=== PATIENT | female | born 1955 | race Caucasian/White ===

== ENCOUNTER 2016-11-22 15:33 | Inpatient (IN) | payer OTHER ==
--- NOTE | 2016-11-22 16:36 | EDPHY ---
H & P Time Seen by Provider: 11/22/16 16:29 HPI/ROS: Chief complaint. Chest pain HPI. 61-year-old female with history dyslipidemia presents to the emergency department after an abnormal stress test today. She has had a cough for 5 days. She went to see her physician about the cough and they found her to have a low heart rate. She was then referred to Cardiology in the stress test today showed apparently complete heart block. Patient has no chest discomfort. No significant shortness of breath. The bronchitis and cough for 4 days. No fever. No unusual leg pain or swelling. No similar symptoms previously ROS Constitutional. no fever/chills, no weakness Eyes. no problems with vision ENT. no sore throat, no nasal drainage Cardiovascular. Slow heart rate Respiratory. Cough Abdominal. no abdominal pain, no nausea/vomiting, no diarrhea . no problems urinating MS. no calf pain/swelling, no neck/back pain, no joint pain Skin. no rash Lymph. no swollen glands Neuro. no headache, no dizziness, no difficulty walking or with speech Past Medical/Surgical History: Dyslipidemia, heart murmur Social History: , nonsmoker, no alcohol Smoking Status: Never smoked Physical Exam: General Appearance: Alert well-developed female mild distress vital signs stable. Initial heart rate 54 Eyes: Pupils equal and round no pallor or injection. ENT, Mouth: Mucous membranes are moist. Respiratory: There are no retractions, lungs are clear to auscultation. Cardiovascular: Regular rate and rhythm. Bradycardia Gastrointestinal: Abdomen is soft and nontender, no masses, bowel sounds normal. Neurological: Awake and alert, sensory and motor exams grossly normal. Skin: Warm and dry, no rashes. Musculoskeletal: Neck is supple nontender. Extremities symmetrical, full range of motion. Psychiatric: Patient is oriented X 3, there is no agitation. Constitutional: Initial Vital Signs Temperature (C) 36.8 C 11/22/16 15:38 Heart Rate 54 L 11/22/16 15:38 Respiratory Rate 16 11/22/16 15:38 Blood Pressure 144/83 H 11/22/16 15:38 O2 Sat (%) 92 11/22/16 15:38 O2 Delivery Mode Room Air Allergies/Adverse Reactions: adhesive Allergy (Verified 05/03/15 15:58) chlorhexidine Allergy (Verified 06/08/15 16:23) Rash latex Allergy (Verified 05/03/15 15:58) nickel Allergy (Verified 06/08/15 16:23) Rash pineapple Allergy (Verified 05/03/15 15:58) tuberculin, purified protein deriva [tuberculin,purif.prot.deriv.] Allergy ( Verified 05/03/15 15:58) steri strips Allergy (Uncoded 11/07/14 11:42) Home Medications: Medication Instructions Recorded Albuterol [Proventil Inhaler HFA 1 - 2 puffs IH DAILY PRN 11/22/16 (*)] Ezetimibe [Zetia 10 MG (*)] 10 mg PO HS 11/22/16 Guaifenesin/Codeine Phosphate 5 - 10 ml PO Q4H PRN 11/22/16 [Guaifenesin-Codeine Liquid] Herbals/Supplements -Info Only 1 ea PO DAILY 11/22/16 Multivitamins [Multivitamin (*)] 1 each PO DAILY 11/22/16 Medical Decision Making - Diagnostics EKG Interpretation: EKG interpreted by me appears to show a 2nd degree AV block. She has P-waves before each QRS complex but then a fixed P wave following the T-wave. No significant ST elevation or depression. No arrhythmia. The heart rate is 42 Imaging Results: Chest x-ray interpreted by me shows possible pneumonia left lung base Procedures: IV normal saline, monitor ED Course/Re-evaluation: Zithromax in the emergency department Patient remained stable on serial evaluations with heart rate in the upper 40s. Patient is not dizzy and does not have chest discomfort. She does continue to have significant deep coughing. No shortness of breath however. I consulted and discussed the case with 2 cardiologists, Dr. Roy and Izabela, Dr. Sarah knows about this patient from the office and tells me that the patient was not in complete heart block but appeared to be in second-degree heart block. He will consult on the patient and discuss further management with hospitalist. I consulted and discussed the case with Dr. Blum, hospitalist, who agrees to the admission The patient, her , and I discussed imaging study showing possible left lower lobe pneumonia. We discussed EKG findings showing abnormal conduction and need for admission. I recommended admission and they are in agreement Differential Diagnosis: The patient has had several days of a deep cough. She saw her physician today for concern for her cough and possible bronchitis or pneumonia. She was found to have a low heart rate and stress test revealed second-degree AV block. It is possible that the second-degree AV block is secondary to the illness or the patient may have primary cardiac cause. No evidence for acute TX. It does appear on chest x-ray to be suspicious for left lower lobe pneumonia. Patient does not appear to be toxic or significantly ill and will be treated with Zithromax - Data Points Laboratory Results: Laboratory Results 11/22/16 16:52 11/22/16 16:52 Medications Given: Discontinued Medications Azithromycin (Zithromax) 500 mg PO DAILY TONE PRN Reason: Protocol Stop: 12/22/16 17:44 Last Admin: 11/23/16 09:33 Dose: Not Given Azithromycin (Zithromax) 500 mg PO EDNOW ONE PRN Reason: Protocol Stop: 11/22/16 19:02 Last Admin: 11/22/16 19:08 Dose: 500 mg Ibuprofen (Motrin) 200 mg PO ONCE ONE Stop: 11/23/16 03:10 Last Admin: 11/23/16 03:05 Dose: 200 mg Departure - Departure Disposition: [facility] Inpatient Acute Clinical Impression: Second degree heart block Pneumonia Qualifiers: Pneumonia type: due to unspecified organism Laterality: left Lung location: lower lobe of lung Qualified Code(s): J18.1 - Lobar pneumonia, unspecified organism Condition: Good
--- NOTE | 2016-11-22 16:37 | CPEKG ---
Heart Rate: 42 RR Interval: 1429 P-R Interval: 216 QRSD Interval: 90 QT Interval: 608 QTC Interval: 509 P [place]: 17 QRS [place]: 18 T Wave [place]: 35 EKG Severity - BORDERLINE ECG - EKG Impression: SINUS BRADYCARDIA EKG Impression: BORDERLINE PROLONGED QT INTERVAL Electronically Signed By: Willis Ricardo 22-Nov-2016 17:41:38
[2016-11-22 17:00] LABS: % IMMATURE GRANULYOCYTES 0.2 % (0.0-1.1); ABSOLUTE IMMATURE GRANULOCYTES 0.02 10^3/uL (0.00-0.10); ADD DIFF? NO; ADD MORPH? NO; ADD SCAN? NO; ATYPICAL LYMPHOCYTE FLAG 10 (0-99); FRAGMENT RBC FLAG 0 (0-99); HEMATOCRIT 43.8 % (38.0-47.0); HEMOGLOBIN 14.6 g/dL (12.6-16.3); LEFT SHIFT FLG 0 (0-99); LIPEMIA HEMOLYSIS FLAG 80 (0-99); MEAN CELL HEMOGLOBIN 28.9 pg (27.9-34.1); MEAN CELL HEMOGLOBIN CONCENTR. 33.3 g/dL (32.4-36.7); MEAN CELL VOLUME 86.7 fL (81.5-99.8); MEAN PLATELET VOLUME 11.4 fL (8.7-11.7); PLATELET CLUMPS FLAG 10 (0-99); PLATELET COUNT 166 10^3/uL (150-400); RED BLOOD CELL COUNT 5.05 10^6/uL (4.18-5.33)
[2016-11-22 17:18] LABS: ANION GAP 11 mEq/L (8-16); CALCIUM 9.7 mg/dL (8.5-10.4); CARBON DIOXIDE 21 mEq/l (22-31); CHLORIDE 105 mEq/L (97-110); CREATININE 0.8 mg/dL (0.6-1.0); GLOMERULAR FILTRATION RATE > 60; GLUCOSE 104 mg/dL (70-100); POTASSIUM 4.3 mEq/L (3.5-5.2); SODIUM 137 mEq/L (134-144)
[2016-11-22 17:31] LABS: TROPONIN I < 0.012 ng/mL (0-0.034)
[2016-11-22] MEDS ORDERED: AZITHROMYCIN 250 MG TAB PO SCH (17:45)
[2016-11-22] MEDS ORDERED: ACETAMINOPHEN 325 MG TAB PO PRN (17:57)
[2016-11-22] MEDS ORDERED: ONDANSETRON DISINTEGRATING 4 MG TAB PO PRN (17:57)
[2016-11-22] MEDS ORDERED: ONDANSETRON 4 MG/2 ML VIAL IVP PRN (17:57)
[2016-11-22] MEDS ORDERED: BENZONATATE 100 MG CAP PO PRN (18:03)
[2016-11-22] MEDS ORDERED: ALBUTEROL 3 ML DEYVIAL IH PRN (18:04)
[2016-11-22] MEDS ORDERED: guaiFENesin/CODEINE PHOS 10 ML UDCUP PO PRN (18:06)
[2016-11-22] MEDS ORDERED: AZITHROMYCIN 250 MG TAB PO ONE (19:01)
[2016-11-22] MEDS ORDERED: ALBUTEROL 3 ML DEYVIAL ONE (19:04)
--- NOTE | 2016-11-22 20:57 | GHP ---
[f rep st] HISTORY AND PHYSICAL DATE OF ADMISSION: 11/22/2016 CHIEF COMPLAINT: Cough and bradycardia. 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 The cough lasted th roughout the week remaining very intense, nonproductive, with some associated shortness of breath. Therefore, she presented to an outpatient clinic for evaluation. When she was being examined by the physician, was noted to have bradycardia and was referred to [facility] for evaluation. The pat james was found to be in second-degree heart block on transfer to the emergency department for evalua tion. In the ED, the patient is endorsing this cough which has been persistent and quite intense ov er the course of the last 5 days, nonproductive per her report even with taking Mucinex at home. Th e patient denies any subjective fevers or chills. Reports some shortness of breath with the cough, but denies any nausea and vomiting. Reports some abdominal discomfort from the cough. Denies chest pain. Denies any diarrhea, any dysuria, hematuria, lower extremity edema, or rashes. PAST MEDICAL HISTORY: Hyperlipidemia, and history of a heart murmur that has simply been followed. SOCIAL HISTORY: Patient does not smoke. Drinks very occasional alcohol. No illicit drugs or marij uana. FAMILY HISTORY: Positive for heart disease in her father. ADVANCED DIRECTIVES: Patient is full cor, full tube. Her would be her medical decision lana er. REVIEW OF SYSTEMS: A 10-point review of systems is negative with the exception of that reported in the HPI. PHYSICAL EXAMINATION: VITAL SIGNS: Blood pressure 144/83, heart rate 54, respiratory rate 16, 92% on room air, 36.8. GENERAL: This is a pleasant appearing middle-aged female, coughing during my ex am but in no distress. HEENT: Notable for moist mucous membranes. Eye exam is negative for any ic terus. CARDIAC: Patient is bradycardic, but regular. PULMONARY: Patient has wheezing on posterio r auscultation, otherwise clear to auscultation. GASTROINTESTINAL: Positive bowel sounds. ABDOMEN : Soft and nontender. MUSCULOSKELETAL: Negative for any lower extremity edema. SKIN: Negative f or any rashes. NEUROLOGIC: Patient is alert and oriented x3. PSYCHIATRIC: She is pleasant and co operative on interview and examination. DATA: White count 8.3. Troponin less than 0.012. Chest x-ray, which I personally reviewed and int erpreted, shows no acute infiltrates or edema. Poor inspiration is commented on by Radiology. EKG, which I personally reviewed and interpreted, shows sinus rhythm with a normal axis. ND interval sli ghtly prolonged. The patient has dropped beats after her T-wave consistent with heart block. ASSESSMENT AND PLAN: This is a -wurb-jhq female with limited history presenting with coug h and bradycardia. 1. Acute heart block. I discussed the case with Dr. Gurrola from Cardiology, who feels that potential ly the patient's cause is related to her acute bronchitis and coughing. She was placed on a stress test today and was noted to have some PVCs which prompted Cardiology's desire to admit her overnight for monitoring. We will bring her in, place her on telemetry. I have ordered a transthoracic echo cardiogram. We will aggressively treat her cough and bronchitis with antibiotics to be outlined bel ow and monitor her heart rhythm on this treatment. The patient is currently asymptomatic and tolera ting normal p.o. We will not initiate any new medications for heart block at this time. 2. Acute bronchitis, suspect likely viral, however, has been prolonged. Will treat for atypical ba cterial pathogens with oral azithromycin. Additionally written the patient for Tessalon Perles, gua ifenesin with codeine, and inhaled albuterol in hopes to find some cessation and comfort for her ove rnight. She can complete an oral course of azithromycin after disposition. We can see overnight wh at gives her the best symptom relief with her cough. 3. Hyperlipidemia. Will continue her home medication without change. 4. Prophylaxis with Lovenox. DIET: Cardiac. DISPOSITION: I expect greater than 2 midnights as the patient is presenting with heart block, which may require intervention. We will monitor overnight and prepare for cardiology evaluation in the [facility]. I have discussed the case with Dr. Gurrola. Patient will be triaged to the PCU for care. /[id number]/MODL
[2016-11-22] MEDS: EZETIMIBE 10 MG TAB PO SCH (21:17)
--- NOTE | 2016-11-23 00:18 | GCON ---
[f rep st] CONSULTATION HISTORY OF PRESENT ILLNESS: This is a 61-year-old female with past medical history of dyslipidemia, who has been working with kindergarten students. She has been performing significant physical activities and felt that she was pushing against a wall for the past couple of days. She was having significant amount of cough with productive sputum. Hence, decided to go to the PCP. While she was there, she was noted to have decreased heart rate. Hence, EKG was performed. The patient was noted to be in 2:1 heart block. She was sent to us for evaluation. On questioning the patient, she denies any light headedness, dizziness, presyncope or syncope. No chest pain or pressure. She was brought to our clinic and evaluated. She underwent a stress test to look for chronotropic incompetence. She was noted to have 2:1 heart block. No acute chest pain at rest. During exercise, she had continued 2:1 block and PVCs. She was not able to exercise much and had to stop due to cough and shortness of breath. PAST MEDICAL HISTORY: Dermatitis, elevated liver enzymes, essential tremor, hyperglycemia, hyperlipidemia, migraine, ovarian cyst complex. PAST SURGICAL HISTORY: Appendectomy, hysterectomy. MEDICATIONS: Advil 200 once a day, glucosamine, guaifenesin, magnesium, Mucinex , multivitamin, ProAir HFA, vitamin D, Zetia. ALLERGIES: Chlorhexidine, tuberculin. FAMILY HISTORY: Coronary artery disease, CVA. SOCIAL HISTORY: 3 children. . technical administrative assistant. Lives with . REVIEW OF SYSTEMS: Other than the above, 10-point review of system is positive for headaches, nasal discharge, fatigue, malaise, body ache, loss of appetite, shortness of breath with wheezing, abnormal sputum production. Otherwise, 10- point review of systems are negative. PHYSICAL EXAMINATION: VITAL SIGNS: Blood pressure 130/80, pulse Temp 36.5, respiratory rate 16. GENERAL: Well-appearing, well-developed, alert female who coughs occasionally. HEENT: No facial lesions or swelling. No sinus tenderness. Conjunctivae normal. Sclerae white bilaterally. Eyelids appear normal. No exudates noted. No inflammation of the oropharynx. Voice is normal. External nose appears normal. Oral mucosa normal without pallor or cyanosis. NECK: Inspection normal. CHEST: Breathing labored. No accessary muscle use. Wheezing present. Expiratory rales throughout. Some clearing with cough. CARDIAC: S1, S2 regular. Bradycardia noted. ABDOMEN: Soft, nontender. No guarding or rigidity. Bowel sounds present. LYMPHATIC: No lymphadenopathy, cervical lymphadenopathy noted. NEURO: Mental status grossly normal. Insight normal. Mood normal. IMPRESSION PLAN: This is a 61-year-old female with acute bronchitis and second -degree atrioventricular block. It is unclear as to the etiology of atrioventricular block. In a 61-year-old female without risk factors likely that this may be related to bronchitis. Considering that she is having PVCs when she is exercising, this could be concerning. Hence, observation in the hospital on tele monitor for 24 hours will be needed. If there is worsening of the heart block, consider implanting a pacemaker. However, it is possible that her heart block will improve with treatment of bronchitis and we can avoid pacemaker implant in this young patient. If she does well in the next 24 hours, we can discharge her to home and see her in the clinic within a week. I have explained this to the patient and the family. They are agreeable to it. We will recommend echocardiogram to evaluate for evidence of myocarditis. PVCs: We will assess for PVCs on tele monitor while she is admitted to the hospital. Thank you for letting us participate in the patient's care. Feel free to call us for questions. /[id number]/MODL MTDD
[2016-11-23] MEDS ORDERED: IBUPROFEN 200 MG TAB PO ONE ×2 (02:49→03:09)
[2016-11-23 05:47] LABS: ANION GAP 9 mEq/L (8-16); CALCIUM 9.1 mg/dL (8.5-10.4); CARBON DIOXIDE 22 mEq/l (22-31); CHLORIDE 108 mEq/L (97-110); CREATININE 0.7 mg/dL (0.6-1.0); GLOMERULAR FILTRATION RATE > 60; GLUCOSE 97 mg/dL (70-100); POTASSIUM 4.4 mEq/L (3.5-5.2); SODIUM 139 mEq/L (134-144)
[2016-11-23] MEDS ORDERED: Herbals/Supplements -Info Only PO SCH (09:00)
[2016-11-23] MEDS ORDERED: AZITHROMYCIN 250 MG TAB PO SCH (09:00)
--- NOTE | 2016-11-23 09:30 | SOAPPROG ---
SOAP Progress Note Assessment/Plan: Assessment: 1. Upper respiratory infection. Common cold versus bronchitis versus possible small pneumonia. Plans are for treatment with antibiotics. 2. Two-to-one AV block. Narrow complex escape indicates that the block is at the level of the AV node. This is asymptomatic. She did undergo a stress test yesterday and did not develop higher degree AV block although was unable to augment her heart rate. She is hemodynamically stable. Plan: 1. Obviously, avoidance of AV roman agents is indicated. 2. Check TSH and magnesium levels. 3. An echocardiogram has been ordered for today. 4. Will plan to monitor her on telemetry throughout today and overnight. As long as she remains hemodynamically stable and does not developed a higher degree of AV block I think that she can be discharged home with close clinical follow-up in the outpatient setting. 5. I do, however, believe that at some point here in the near future she will require placement of a permanent pacemaker. I also wonder if, at some point here in the near future, we should consider further workup for possible sarcoidosis. Subjective: The patient was seen and examined. Her chart was reviewed. She was seen in consultation by Dr. Trevon Gurrola yesterday. She has been monitored overnight. She remains in 2-1 heart block however, is asymptomatic at the present time. Specifically, she has not manifested any symptoms of dizziness, lightheadedness , presyncope or syncope. She is currently being treated for an upper respiratory infection possibly bronchitis. There is also consideration of a possible small pneumonia. She had a stress test done yesterday. She was unable to augment her heart rate with physical activity however she did not develop I higher degree of AV block with physical activities. Objective: Vital Signs Temp Pulse Resp BP Pulse Ox 36.4 C 44 L 14 146/53 H 96 11/23/16 07:56 11/23/16 07:56 11/23/16 07:56 11/23/16 07:56 11/23/16 07:56 Laboratory Results 11/23/16 04:20 11/22/16 11/23/16 11/24/16 05:59 05:59 05:59 Intake Total 300 Balance 300 - Pending Discharge Pending Discharge Within 24 Hours: No Pending Discharge Within 48 Hours: Yes Pending Discharge Date: 11/26/16 Pending Discharge Time: 11:00 Physical Exam - Physical Exam General Appearance: WD/WN, no apparent distress, other (She coughs frequently during the exam) Neck: non-tender, full range of motion Respiratory: lungs clear, No crackles, No rales, No rhonchi Cardiac/Chest: bradycardia, No edema, No gallop, No JVD Peripheral Pulses: 2+: carotid (R), carotid (L) Abdomen: non-tender Pelvic Exam: deferred Rectal: deferred Extremities: No pedal edema Neuro/Psych: alert, normal mood/affect, oriented x 3 ICD10 Worksheet Patient Problems: Problems Problem Status Onset Cough Acute Pneumonia Acute Second degree heart block Acute
[2016-11-23] MEDS: MULTIVITAMINS 1 EACH TAB PO SCH (09:42)
[2016-11-23] MEDS: ENOXAPARIN 40 MG/0.4 ML SYR SC SCH (09:44)
--- NOTE | 2016-11-23 10:03 | ECHO ---
[id number] + + [id number] : : [place] [address] : : [phone] + + Adult Echocardiographic Report + ------+ :Name: PARAG CEDILLO LStudy Date: 11/23/2016 09:15 AM BP: 146/53 mmHg : : Hospital Admission Number: [id number] Locatio n: 223: :: 1955 Gender: Female Height: 65 in : :Age: 61 yrs Race: WH Weight: 168 lb : :Reason For Study: heart block : : BSA: 1.8 meters 2 : :History: heart block : + ------+ MMode/2D Measurements \T\ Calculations IVSd: 0.82 cm RVDd: 4.0 cm FS: 29.1 % Ao root diam: LVPWd: 0.95 cm LVIDd: 4.9 cm EDV(Teich): 2.2 cm LVIDs: 3.5 cm 112.6 ml LA dimension: ESV(Teich): 3.9 cm 49.9 ml EF(Teich): 55.7 % LVLd ap4: 8.9 cm SV(MOD-sp4): EDV(MOD-sp4): 85.0 ml 124.0 ml LVLs ap4: 7.5 cm ESV(MOD-sp4): 39.0 ml EF(MOD-sp4): 68.5 % Normal Measurement Values: + + :LVIDd (3.5-5.7cm) IVSd (0.6-1.1cm) LVPWd (0.6-1.1cm) Aortic Root (2.0-3.7cm)Left Atrium (1.5-4.0cm): :LV Vol(d) (76-115ml) LV Vol(s) (29-48ml) Ejec Fraction (50-65%)PV Ciro (0.6- 1.2m/s) TV Ciro (0.4-1.0m/s) : :MV E Ciro (0.8-1.0m/s)MV A Ciro (0.3-1.0m/s)LVOT Ciro (0.7-1.2m/s) Asc Ao Ciro ( 0.9-1.8m/s) : + + Doppler Measurements \T\ Calculations MV E max ciro: Ao V2 max: LV V1 max: PA V2 max: 65.2 cm/sec 192.9 cm/sec 146.2 cm/sec 107.6 cm/sec MV A max ciro: Ao max PG: LV V1 max PG: PA max P.4 cm/sec 14.9 mmHg 8.6 mmHg 4.6 mmHg MV E/A: 0.79 MV dec time: 0.23 sec Left Ventricle The left ventricle is normal in size and function. There is normal left ventricular wall thickness. Ejection Fraction = 55-60%. There is Doppler evidence for diastolic dysfunction. No regional wall motion abnormalities noted. Right Ventricle The right ventricle is normal in size and function. Atria The Left Atrial Volume is 34 ml/m2. The left atrium is mildly dilated. Mitral Valve The mitral valve is normal in structure and function. There is no mitral valve stenosis. There is mild mitral regurgitation. Tricuspid Valve The tricuspid valve is normal in structure and function. There is no tricuspid stenosis. There is trace tricuspid regurgitation. Aortic Valve The aortic valve is normal in structure and function. There is no aortic stenosis. Trace aortic regurgitation. Pulmonic Valve The pulmonic valve is not well visualized. Great Vessels The aortic root is normal size. Pericardium/Pleural There is no pericardial effusion. Pleural effusion noted. Conclusion A two-dimensional transthoracic echocardiogram with M-mode and Doppler was performed. The rhythm is NSR with 2:1 AV block. The left ventricle is normal in size and function. Ejection Fraction = 55-60%. There is Doppler evidence for diastolic dysfunction. Normal wall motion. The Left Atrial Volume is 34 ml/m2. The left atrium is mildly dilated. Valvular appearance is normal. There is mild mitral regurgitation. This occurs predominantly in diastole during blcked beats. There is trace tricuspid regurgitation. Trace aortic regurgitation. Final Reading Physician: Ade Hurtado signed on 11/23/2016 10:02 AM Ordering Physician: Kyra Blum Performed By: Brenda Henley
--- NOTE | 2016-11-23 10:21 | HOSPPROG ---
Hospitalist Progress Note Assessment/Plan: DIAGNOSES: # persistent cough and dyspnea without fever and with the centrally normal chest x-ray -this is the 3rd episode of this similar illness for her in the past couple months or so. She does have history of allergic rhinitis. She is responding nicely at this time as well at home previously to bronchodilators for this. The differential diagnosis for this includes asthma, viral respiratory infection, as well as other noninfectious inflammatory illnesses. I reviewed this With the patient has been. At this point a viral respiratory panel will be useful to see if we can identify respiratory illness. I will get PFTs to look for any sign of asthma. -will continue bronchodilators as she has responded to this and consider possibly some inhaled steroids as well. # bradycardia with second-degree AV blockade. -we do need to check thyroid as well as Magnesium for her -echo is also pending to look for structural heart disease -she is tolerating this bradycardia and heart block well, so at this point we have the luxury of time to watch how long this goes on or whether she develops any higher degree blockade. PLANS: -no current plans to place pacemaker but she may eventually need that in the near or long distant future -PFTs -viral respiratory panel -continue bronchodilators -consider inhaled steroid -will hold off on antibiotics for the moment as I do not see a clear indication for antibiotic at this time SUBJECTIVE: Continues to have ongoing significant cough and shortness of breath with exertion No chest pain Not particularly lightheaded OBJECTIVE Vitals reviewed: Bradycardia but good blood pressures, Line Lead, my review: Continues on with continuous second-degree heart block with pulse of 40 Exam: alert oriented skin warm dry color ok resps not labored lungs clear BSs with no wheeze rales or rhonchi (it is at least 8 hours since her last bronchodilator) heart regular abd soft nondistended nontender, bowel sounds present limbs warm, no edema iv site ok I have personally reviewed her chest x-ray images which show on my interpretation a normal chest x-ray with probably some minimal atelectasis at the left lower lobe Objective: Vital Signs Temp Pulse Resp BP Pulse Ox 36.4 C 44 L 14 146/53 H 96 11/23/16 07:56 11/23/16 07:56 11/23/16 07:56 11/23/16 07:56 11/23/16 07:56 Laboratory Results 11/23/16 04:20 11/22/16 11/23/16 11/24/16 06:59 06:59 06:59 Intake Total 300 Balance 300 ICD10 Worksheet Patient Problems: Problems Problem Status Onset Cough Acute - ICD10 Problem Qualifiers (1) Cough
[2016-11-23] MEDS: IBUPROFEN 200 MG TAB PO PRN ×2 (12:39→19:11)
[2016-11-23] MEDS: EZETIMIBE 10 MG TAB PO SCH (20:07)
[2016-11-24 07:33] VITALS: BP 140/60; PULSE 40; RESP 13; TEMP 97.6
--- NOTE | 2016-11-24 09:33 | SOAPPROG ---
SOAP Progress Note Assessment/Plan: Assessment: 1. Upper respiratory infection. Common cold versus bronchitis versus possible small pneumonia. Plans are for treatment with antibiotics. 2. Two-to-one AV block. Narrow complex escape indicates that the block is at the level of the AV node. This is asymptomatic. She did undergo a stress test yesterday and did not develop higher degree AV block although was unable to augment her heart rate. She is hemodynamically stable. Plan: At this point, I think that she is stable for discharge. I would like her to follow up with Dr. Trevon Gurrola next Friday For reassessment of her AV block. 11/24/16 09:33 Subjective: She has remained hemodynamically stable overnight. Apparently, her nasal swab returned with evidence of run a virus and enterovirus. She continues to have a cough. On telemetry she has not had any higher degrees of AV block other than her baseline two-to-one AV block. Objective: Vital Signs Temp Pulse Resp BP Pulse Ox 36.4 C 40 L 13 140/60 H 96 11/24/16 07:31 11/24/16 07:31 11/24/16 07:31 11/24/16 07:31 11/24/16 07:31 Microbiology 11/23/16 09:45 Respiratory Panel (PCR) - Final Nasal, Sinus - [place] Viral Transport Human Rhinovirus/Enterovirus Laboratory Results 11/23/16 04:20 11/23/16 11/24/16 11/25/16 05:59 05:59 05:59 Intake Total 300 880 425 Balance 300 880 425 Laboratory Tests 11/22/16 11/23/16 16:52 04:20 Troponin I < 0.012 NT-Pro-B Natriuret Pep 65 TSH 2.080 Physical Exam - Physical Exam General Appearance: WD/WN, no apparent distress Neck: non-tender Respiratory: lungs clear Cardiac/Chest: regular rate, rhythm Peripheral Pulses: 2+: carotid (R), carotid (L) ICD10 Worksheet Patient Problems: Problems Problem Status Onset Cough Acute Pneumonia Acute Second degree heart block Acute
[2016-11-24 09:37] VITALS: O2SAT 86
[2016-11-24] MEDS: ENOXAPARIN 40 MG/0.4 ML SYR SC SCH (09:47)
[2016-11-24] MEDS: MULTIVITAMINS 1 EACH TAB PO SCH (09:47)
--- NOTE | 2016-11-24 10:17 | PDDCSUM ---
Discharge Summary Discharge Summary: DISCHARGE DIAGNOSES: -second-degree AV block with bradycardia -Viral respiratory illness with rhino virus confirmed -Bronchitis versus possible asthma CONSULTANTS: Dr. Brien Fay And Dr. Trevon Gurrola PROCEDURES: Echocardiogram HOSPITAL COURSE SUMMARY: This patient came into the hospital complaining of cough and shortness breath. 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 She was diagnosed in the outpatient setting with bronchitis and has been previously diagnosed with bronchitis doing the other episodes. She has been using inhaled albuterol which is helping her dyspnea and her cough. She denies any history of asthma but does give a history of allergic rhinitis seasonally. On arrival here she is found to be in second-degree AV block with ongoing heart rate of 40 to 45. other than the above symptoms she is tolerating the slow heart rate well and has good blood pressures. No signs of heart failure. She has an echocardiogram that shows some diastolic dysfunction but fairly unremarkable otherwise. She has rule out for myocardial infarction. She is not taking any heart rate slowing medications. Her thyroid function is normal and electrolytes are good. It was felt that she might possibly need pacemaker placement although it was felt also possible that her bradycardia could be caused by her acute respiratory illness. It is elected to have the patient follow up with Dr. Gurrola in the clinic with 1 week to see how her pulse and electrical activity or behaving, and consider possibly doing pacemaker placement at that time she still having difficulty. In terms of her respiratory symptoms she did not have wheezing here. She was coughing up small amounts of non purulent appearing phlegm. There is no fever. Chest x-ray showed no definite infiltrate on my review of the images. A consider the possibility of asthma. Pulmonary function testing was done with bedside spirometry. This is probably compromised by her severe cough. Notably it shows a significant decrease in expected FEV1 however the FVC was also decreased in the FEV to FVC ratio was in the normal range for her. Additionally she did not have hyperexpanded appearing lungs on her chest x-ray. However she has been having good response to her dyspnea and cough at home with inhaled albuterol and continues to have that same response here in the hospital. It is recommended that at this time she continued to use inhaled albuterol and seek referral to an chief crna a electronics test engineer to consider testing for asthma in the outpatient setting. PENDING TEST RESULTS: None MEDICATION CHANGES: none FOLLOW-UP PLAN: -follow-up with Dr. Sarah in Cardiology Clinic in 1 week to consider possible need for pacemaker placement -Follow up with primary care Yumiko Mohr physician speech pathologist assistant for assessment of respiratory symptoms and referral to allergy or pulmonology to test for asthma Greater than 35 minutes bedside and care coordination time today
== END 2016-11-24 11:17 | disposition home or self-care (01) | DRG 310 ==
LOC: F2W 20:43
PROVIDERS: ADMIT Hospitalist; ATTEND Hospitalist
DX: I44.1 Atrioventricular block, second degree (principal); J20.6 Acute bronchitis due to rhinovirus; E78.5 Hyperlipidemia, unspecified
CPT/HCPCS: J1650

== ENCOUNTER 2016-12-09 11:31 | Observation (INO) | payer OTHER ==
[2016-12-09] MEDS ORDERED: diphenhydrAMINE 25 MG CAP PO ONE (11:32)
[2016-12-09] MEDS ORDERED: ceFAZolin 2 GM/DEXTROSE 100 ML IV ONE (11:32)
[2016-12-09] MEDS ORDERED: BACITRACIN IRRIGATION/NS 50,000 UNITS/1,000 ML BTL IRR ONE (11:32)
[2016-12-09] MEDS ORDERED: NS 1,000 ML IV ONE (11:32)
[2016-12-09] MEDS ORDERED: DIAZEPAM 5 MG TAB PO ONE (11:32)
--- NOTE | 2016-12-09 11:57 | CPEKG ---
Heart Rate: 34 RR Interval: 1765 QRSD Interval: 86 QT Interval: 528 QTC Interval: 397 QRS [place]: 6 T Wave [place]: 6 EKG Severity - ABNORMAL ECG - EKG Impression: SINUS BRADYCARDIA WITH SECOND DEGREE (TYPE I) AVB EKG Impression: BORDERLINE T ABNORMALITIES, DIFFUSE LEADS EKG Impression: "P" WAVE AMPLITUDE IS SMALL EKG Impression: PRIOR ECG WITH SINUS RHYTHM AND 2:1 BLOCK Electronically Signed By: Gilles Reilly 10-Dec-2016 12:29:21
[2016-12-09 12:18] LABS: % IMMATURE GRANULYOCYTES 0.3 % (0.0-1.1); ABSOLUTE IMMATURE GRANULOCYTES 0.02 10^3/uL (0.00-0.10); ADD DIFF? NO; ADD MORPH? NO; ADD SCAN? NO; ATYPICAL LYMPHOCYTE FLAG 0 (0-99); FRAGMENT RBC FLAG 0 (0-99); HEMATOCRIT 45.3 % (38.0-47.0); LEFT SHIFT FLG 0 (0-99); LIPEMIA HEMOLYSIS FLAG 80 (0-99); MEAN CELL HEMOGLOBIN 28.8 pg (27.9-34.1); MEAN CELL HEMOGLOBIN CONCENTR. 33.1 g/dL (32.4-36.7); MEAN CELL VOLUME 86.9 fL (81.5-99.8); MEAN PLATELET VOLUME 11.6 fL (8.7-11.7); PLATELET CLUMPS FLAG 0 (0-99); PLATELET COUNT 185 10^3/uL (150-400); RED BLOOD CELL COUNT 5.21 10^6/uL (4.18-5.33); RED CELL DISTRIBUTION WIDTH 13.9 % (11.5-15.2)
[2016-12-09] MEDS ORDERED: LIDOCAINE 1% 300 MG/30 ML SDV ONE (12:37)
[2016-12-09] MEDS ORDERED: MIDAZOLAM 2 MG/2 ML VIAL ONE ×2 (12:37→13:49)
[2016-12-09] MEDS ORDERED: fentaNYL 100 MCG/2 ML INJ ONE ×2 (12:37→13:49)
[2016-12-09] MEDS ORDERED: BUPIVACAINE 0.5% 30 ML SDV ONE (12:38)
[2016-12-09] MEDS ORDERED: LIDO/EPI 1% **for epidural** 30 ML SDV ONE (12:38)
[2016-12-09] MEDS ORDERED: IOPAMIDOL (ISOVUE-300) 150 ML BTL ONE (12:40)
[2016-12-09 12:42] LABS: INR 1.04 (0.83-1.16); PROTIME(PATIENT) 13.5 SEC (12.0-15.0)
[2016-12-09 12:45] LABS: ANION GAP 11 mEq/L (8-16); CALCIUM 10.1 mg/dL (8.5-10.4); CARBON DIOXIDE 21 mEq/l (22-31); CHLORIDE 108 mEq/L (97-110); CREATININE 0.8 mg/dL (0.6-1.0); GLOMERULAR FILTRATION RATE > 60; GLUCOSE 89 mg/dL (70-100); POTASSIUM 4.3 mEq/L (3.5-5.2); SODIUM 140 mEq/L (134-144)
[2016-12-09] MEDS: IBUPROFEN 200 MG TAB PO PRN (19:34)
[2016-12-09] MEDS ORDERED: EZETIMIBE 10 MG TAB PO SCH (21:00)
[2016-12-10] MEDS: IBUPROFEN 200 MG TAB PO PRN ×2 (02:27→08:47)
[2016-12-10 04:37] LABS: % IMMATURE GRANULYOCYTES 0.3 % (0.0-1.1); ABSOLUTE IMMATURE GRANULOCYTES 0.02 10^3/uL (0.00-0.10); ADD DIFF? NO; ADD MORPH? NO; ADD SCAN? NO; ATYPICAL LYMPHOCYTE FLAG 0 (0-99); FRAGMENT RBC FLAG 0 (0-99); HEMATOCRIT 41.8 % (38.0-47.0); HEMOGLOBIN 13.8 g/dL (12.6-16.3); LEFT SHIFT FLG 0 (0-99); LIPEMIA HEMOLYSIS FLAG 80 (0-99); MEAN CELL HEMOGLOBIN 28.7 pg (27.9-34.1); MEAN CELL VOLUME 86.9 fL (81.5-99.8); MEAN PLATELET VOLUME 11.6 fL (8.7-11.7); PLATELET CLUMPS FLAG 0 (0-99); PLATELET COUNT 150 10^3/uL (150-400); RED BLOOD CELL COUNT 4.81 10^6/uL (4.18-5.33); RED CELL DISTRIBUTION WIDTH 13.8 % (11.5-15.2)
[2016-12-10 05:02] LABS: ANION GAP 10 mEq/L (8-16); CALCIUM 9.6 mg/dL (8.5-10.4); CARBON DIOXIDE 21 mEq/l (22-31); CHLORIDE 106 mEq/L (97-110); CREATININE 0.8 mg/dL (0.6-1.0); GLOMERULAR FILTRATION RATE > 60; GLUCOSE 96 mg/dL (70-100); POTASSIUM 4.2 mEq/L (3.5-5.2); SODIUM 137 mEq/L (134-144)
[2016-12-10 07:31] VITALS: BP 146/91; PULSE 75; RESP 20; TEMP 98.2; O2SAT 94
[2016-12-10] MEDS ORDERED: Herbals/Supplements -Info Only PO SCH (09:00)
[2016-12-10] MEDS ORDERED: MULTIVITAMINS 1 EACH TAB PO SCH (09:00)
--- NOTE | 2016-12-10 09:14 | CPEKG ---
Heart Rate: 74 RR Interval: 811 P-R Interval: 190 QRSD Interval: 132 QT Interval: 420 QTC Interval: 466 P Chester: -13 QRS [place]: -71 T Wave [place]: 99 EKG Severity - ABNORMAL ECG - EKG Impression: ATRIAL-SENSED VENTRICULAR-PACED COMPLEXES EKG Impression: LVH WITH IVCD, LAD AND SECONDARY REPOL ABNRM Electronically Signed By: Isrrael Ramirez 10-Dec-2016 15:40:49
--- NOTE | 2016-12-11 02:30 | GDS ---
[f rep st] DISCHARGE SUMMARY ADMIT DIAGNOSES: 1. Bradycardia. 2. Heart block. 3. Pacemaker placement. DISCHARGE DIAGNOSES: 1. Status post successful pacemaker placement with no complications. 2. Bradycardia. 3. Heart block. COURSE OF HOSPITALIZATION: The patient was found to have bradycardia with heart block which was sym ptomatic. She was evaluated by Dr. Trevon Gurrola with recommendation to proceed with permanent pacem lisa placement. She was in agreement with this plan. She was taken to the EP lab where he was able to place the pacemaker with no complications. She was then taken to PCU for overnight observation where she has done well. Her left pectoral pacemaker site has mild tenderness with swelling and min imal ecchymoses. There is no bleeding or induration at site. She has done well, and at this time, is stable for discharge. ALLERGIES: She has allergies to acetaminophen, adhesive, chlorhexidine, latex, nickel. HOME MEDICATIONS: Zetia 10 mg at bedtime, multivitamin 1 daily, herbs 1 daily, Motrin 400-800 mg ev shakeel 6 hours for discomfort. PHYSICAL EXAMINATION: VITAL SIGNS: On day of discharge, blood pressure 133/86, heart rate 78. EKG shows a paced rhythm with a rate of 75. Heart rate is regular. No murmurs, rubs, or gallops. SHERITA GS: Sounds are clear to auscultation. No wheezes, rales, or rhonchi. EXTREMITIES: No peripheral edema noted. SKIN: Pacemaker site is intact with no bleeding, induration. She does have some swel ling and mild tenderness at site. IMAGING DATA: Chest x-ray was done showing no pleural effusions. DISCHARGE PLAN: She will follow up with Dr. Trevon Gurrola in 2 weeks. She has a follow-up pacemaker check and wound check in 1 week at [facility]. These appointments have been previously made for her, and she is aware of them. DISCHARGE ACTIVITY: Left arm restrictions were discussed with her. She understands that for the ne xt week no using her arm above shoulder level or heavy lifting, pushing, pulling with the left arm. CONDITION ON DISCHARGE: At this time, she currently is stable for discharge. /[id number]/MODL
--- NOTE | 2016-12-11 07:45 | EPPROC ---
Electrophysiology Procedure Note: PROCEDURE PERFORMED: Implantation of an A/V Pacemaker Fluoroscopy INDICATION: This is a 61 yr old with symptomatic 2:1 and high grade AV block. In view of this it was decided to implant a dual chamber pacemaker. PROCEDURE NOTE: Patient presented to the cardiac catheterization laboratory in a fasting, post absorptive state. Cardiac clinical laboratory director nurse administered moderate sedation. The left infraclavicular area was prepped and draped in the usual sterile fashion. Lidocaine plus bupivacaine was used for local anesthesia. Left subclavian venography was performed by injection of iodinated contrast into the left antecubital vein. This was done to assure patency of the vein and also to assess for any anatomical aberrations. Using a combination of blunt and sharp dissection and electrocautery, the dissection was carried down to the prepectoral fascia. All bleeding was controlled with electrocautery. Fluoroscopy was utilized during the entire procedure for venous access and placement of the leads. Using the usual technique, left celphalic vein was accessed and a glidewire was placed. Through this initially a 9F and later a 7F sheath was passed. Placement of the guidewires into the venous system was confirmed by low- pressure blood return and also by visualizing the guidewires advancing into the inferior vena cava. A purse string suture was applied around the guidewires. An active fixation ventricular lead was advanced into the right ventricular apex and screwed in place. An active fixation atrial lead was advanced into the right atrial appendage and screwed in place. The peel away sheaths were removed. Pacing thresholds, sensing parameters and lead impedances were measured. There was no diaphragmatic stimulation at maximum output. The leads were sutured to the prepectoral fascia with 3 nonabsorbable sutures each. The pocket was created and it was flushed using antibiotic solution. It was inspected for any bleeding. The leads were attached to the pacemaker securely. The pacemaker was inserted into the pocket and secured in place with a nonabsorbable suture. Fluoroscopy was performed in OROZCO and CHERELLE planes to verify right-sided placement of the leads. Also fluoroscopy of the pacemaker pocket was performed. The pacemaker pocket was closed in 3 layers with absorbable vicryl sutures. Steristrips were placed. Appropriate dressing was applied. The patient left the cardiac catheterization laboratory in stable condition. Serial Numbers: Device: St Mychal Assurity MRI SN [id number] Atrial Lead: ST Mychal Tendril 2088TC SN [id number] Ventricular Lead: ST Mychal Tendril 2088TC SN [id number] Stimulation Thresholds & Impedance Measurements: Atrial Lead 1.4mV, 0.4@0.5ms, 552Ohms Ventricular Lead 5.8mV, 0.3@0.5ms, 694Ohms Royer Pacing Parameters Pacing mode: DDDR Lower rate: 60 Upper tracking rate: 130 Upper sensor rate: 130 Patient Problems: Problems Problem Status Onset Cough Acute Pneumonia Acute Second degree heart block Acute
== END 2016-12-10 11:33 | disposition home or self-care (01) ==
LOC: FCATH 11:31 → F2W 14:36
PROVIDERS: ADMIT Internal Medicine Cardiovascular Disease; ATTEND Internal Medicine Cardiovascular Disease
DX: R00.1 Bradycardia, unspecified (principal); I44.1 Atrioventricular block, second degree; I45.5 Other specified heart block; I49.3 Ventricular premature depolarization; E78.5 Hyperlipidemia, unspecified; Z82.49 Family history of ischemic heart disease and other diseases of the circulatory system
CPT/HCPCS: C1769; C1785; C1898; G0378; J0690; J2250; J3010; Q9967

== ENCOUNTER → 2017-05-07 | Outpatient (CLI) | payer OTHER | LOC: FIMAGING 15:49 | PROVIDERS: ATTEND Physician Assistant | DX: Z12.31 Encounter for screening mammogram for malignant neoplasm of breast (principal) | CPT/HCPCS: G0202 ==

== ENCOUNTER → 2018-07-09 | Outpatient (CLI) | payer OTHER | LOC: FIMAGING 10:18 | PROVIDERS: ATTEND Physician Assistant | DX: M46.96 Unspecified inflammatory spondylopathy, lumbar region (principal); M41.86 Other forms of scoliosis, lumbar region ==